=== PATIENT | male | born 1985 | race Caucasian/White ===

== ENCOUNTER → 2018-04-17 16:24 | Outpatient (CLI) | payer BC, SELFPAY ==
--- NOTE | 2018-04-17 | LES_PTH ---
PATIENT: FREDY MILLS I LOC: [facility] U#:[id number] AGE/SX: 39/M ROOM: RE04/17/[address]: Dr. Rob Castelan, MAGGIE : 1985 BED: DIS: SPEC #: [id number] RECD: 04/17/18 15:57 STATUS: POLO PHYLLIS #: [id number] MICHA: 04/17/18 00:[address]: Rob Castelan DEPT: SURGICAL PATHOLOGY RECD BY: Kavon Lorenzana ENTERED: 04/18/18 08:41 SP TYPE: Lesion OTHR DR: Dr. 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 Focal hyperkeratosis. SJ:cherrie 04/21/18 MICROSCOPIC DESCRIPTION Slides are reviewed. GROSS DESCRIPTION Received is one container labeled with the patient's name and not further designated. The specimen consists of a polypoid piece of ramos mucosal tissue measuring 1 x 0.7 x 0.5 cm. The specimen is inked, bisected and submitted entirely in one cassette. / SJ:rg 04/18/18 TC:5 CPT: 82235
== END ==
PROVIDERS: Family Provider Family Medicine; PCP Family Medicine; Visit Provider Dentist Oral and Maxillofacial Surgery
DX: L85.9 Epidermal thickening, unspecified (principal)
CPT/HCPCS: 88305

== ENCOUNTER → 2021-08-09 08:12 | Outpatient (CLI) | payer BC, SELFPAY | PROVIDERS: PCP Family Medicine; Referring Provider Family Medicine; Visit Provider Family Medicine | DX: G47.30 Sleep apnea, unspecified (principal) | CPT/HCPCS: 95811 ==

== ENCOUNTER → 2021-09-05 09:16 | Outpatient (CLI) | payer BC, SELFPAY | PROVIDERS: PCP Family Medicine; Visit Provider Family Medicine | DX: Z46.89 Encounter for fitting and adjustment of other specified devices (principal) ==

== ENCOUNTER → 2022-11-08 | Outpatient (CLI) | payer BC, SELFPAY ==
--- NOTE | 2022-11-08 11:37 | US_ITS ---
STUDY: SUPERFICIAL ULTRASOUND - RIGHT CERVICAL REGION. REASON FOR EXAM: Male, 37 years old. Lump right neck TECHNIQUE: A superficial ultrasound was performed with real-time and static morgan-scale imaging. COMPARISON: None. FINDINGS: The palpable abnormality corresponds to a 9 mm x 7 mm x 6 mm lymph node. US/Head/Neck Soft Tissue IMPRESSION: The palpable abnormality corresponds to a 9 mm x 7 mm x 6 mm lymph node. Electronically Signed: Mt Zavala MD at 14:21 EST ,
== END | disposition home or self-care (01) ==
LOC: US 11:10
PROVIDERS: PCP Family Medicine; Referring Provider Family Medicine; Visit Provider Family Medicine
DX: R22.1 Localized swelling, mass and lump, neck (principal); M79.89 Other specified soft tissue disorders
CPT/HCPCS: 76536

== ENCOUNTER → 2022-11-09 | Outpatient (CLI) | payer BC, SELFPAY ==
[2022-11-09 15:11] LABS: Absolute Lymphocyte Count 2.16 X10^3/uL (0.83-4.51); Absolute Neutrophil Count 4.3 X10^3/uL (2.0-7.7); Basophil# 0.05 X10^3/uL; Basophil% 0.7 % (0-1); Eosinophil# 0.29 X10^3/uL; Hematocrit 46.6 % (40-54); Lymphocyte # 2.16 X10^3/ul (0.83-4.51); Lymphocyte % 29.8 % (19-41); Mean Corp Hgb Conc 34.3 g/dL (32-36); Mean Corpuscular Hgb 29.5 pg (27.0-32.0); Mean Platelet Vol. 10.1 fl (6.2-12.0); Monocyte# 0.44 X10^3/uL; Monocyte% 6.1 % (0-10); NRBC Flagged by Analyzer 0 % (0-5); Neutrophil # 4.28 X10^3/uL (2.7-7.7); Neutrophil % 59.1 % (47-70); Platelet Count 290 K/mm3 (150-450); RBC Distribution Width SD 39.9 fl (35.1-43.9); Red Blood Count 5.42 M/mm3 (4.6-6.2); White Blood Count 7.2 K/mm3 (4.4-11.0)
[2022-11-09 15:20] LABS: LDH 243 U/L (87-241)
== END | disposition home or self-care (01) ==
LOC: LAB.FUTURE 10:14 → LAB 11:10
PROVIDERS: PCP Family Medicine; Visit Provider Family Medicine
DX: R59.0 Localized enlarged lymph nodes (principal)
CPT/HCPCS: 36415; 83615; 85025

== ENCOUNTER → 2022-11-21 | Outpatient (CLI) | payer BC, SELFPAY ==
[2022-11-21 16:41] LABS: Chlamydia Trachomatis by PCR Negative (Negative); Neisserai gonorrhoeae by PCR Negative (Negative); Probe Check PASS; Sample Adequacy Control PASS; Specimen Processing Control PASS
[2022-11-21 16:52] LABS: HIV - WCH Non-Reactive (Nonreactive); Syphilis Antibodies Non-reactive
== END | disposition home or self-care (01) ==
LOC: LAB 13:24
PROVIDERS: PCP Family Medicine; Referring Provider Family Medicine; Visit Provider Family Medicine
DX: Z20.9 Contact with and (suspected) exposure to unspecified communicable disease (principal)
CPT/HCPCS: 36415; 86703; 86780; 87491; 87591

== ENCOUNTER → 2022-11-26 | Outpatient (CLI) | payer BC, SELFPAY ==
[2022-11-26 12:57] LABS: ALB/GLOB Ratio 1.2 RATIO (0.9-2.4); AST(SGOT) 15 U/L (15-37); Alanine Aminotransfer ALT/SGPT 36 U/L (16-61); Albumin, Serum 4.2 g/dL (3.2-5.0); Alkaline Phosphatase 65 U/L (45-117); Anion Gap 11 (5-15); BUN 13 mg/dL (7-18); BUN/Creat Ratio 14.8 RATIO (10-20); Calcium,Total 9.3 mg/dL (8.5-10.1); Chloride 103 mmol/L (98-107); Cholesterol 170 mg/dL (200); Creatinine, Serum 0.88 mg/dL (0.70-1.30); EST Glomerular Filtration Rate 104 mL/min (>60); Est Glom Filt Rate - Afr Amer 126 mL/min (>60); Globulin 3.5 g/dL (2.2-4.2); Glucose 88 mg/dL (74-106); High Density Lipoprotein 39 mg/dL; Potassium 3.7 mmol/L (3.5-5.1); Protein, Total 7.7 g/dL (6.4-8.2); Sodium Level 140 mmol/L (136-145); Triglycerides 153 mg/dL; Very Low Density Lipoprotein 31 mg/dL (5-40)
== END | disposition home or self-care (01) ==
LOC: BFHLAB 11:03
PROVIDERS: PCP Family Medicine; Visit Provider Family Medicine
DX: Z00.00 Encounter for general adult medical examination without abnormal findings (principal)
CPT/HCPCS: 36415; 80053; 80061